=== PATIENT | female | born 1975 | race Caucasian/White ===

== ENCOUNTER → 2016-12-25 | Day surgery (SDC) | payer SELFPAY ==
[~2016-12-25] VITALS: Ht 170.2 cm; Wt 84.2 kg
[~2016-12-25] MED LIST: COLACE100 MG PO; NORCO 5-325 TA1 EACH PO; ZOFRAN4 MG PO
--- NOTE | ~2016-12-25 | OR ---
PATIENT'S NAME: ARLEN BARRETT [facility] AGE: 41 Y [address] ROOM: [place] [address] [place] [facility] [place]: 12/25/2016 OR/Procedure Report DISCHARGE DATE: FAMILY PHYSICIAN: Genoveva Leon PA-C ATTENDING PHYSICIAN: Jon Silver SURGEON: Jon Silver MD CLERICAL SUPERVISOR: Mihai Martinez PA-C DATE OF PROCEDURE: 12/25/2016 PREOPERATIVE DIAGNOSIS: Cholelithiasis with recent bout of gallstone pancreatitis. POSTOPERATIVE DIAGNOSIS: Cholelithiasis with recent bout of gallstone pancreatitis. PROCEDURE PERFORMED: Laparoscopic cholecystectomy with intraoperative cholangiogram. FINDINGS: There were no filling defects on cholangiogram. There were a large number of stones in the gallbladder. ESTIMATED BLOOD LOSS: 20 mL. COMPLICATIONS: None. INDICATIONS: The patient is a 41-year-old female, who had signs and symptoms of biliary colic and then presented with what appeared like gallstone pancreatitis. She was managed with this and now is in need of cholecystectomy. We discussed cholecystectomy with the patient, the risks, benefits, and alternatives, and she elected to proceed. PROCEDURE IN DETAIL: The patient was taken to the operating room. She was placed supine, given IV sedation, and subsequently intubated. Abdomen was prepped with ChloraPrep and sterilely draped. Local anesthetic was infiltrated just superior to the umbilicus. A transverse incision was created. The abdomen was elevated. Veress needle was inserted. Pneumoperitoneum was induced. Following this, a 5 mm trocar was inserted followed by insertion of the camera. There was no injury from initial trocar placement. Three more trocars were then positioned, an 11 mm epigastric and two 5 mm right subcostal ports. Skin overlying the peritoneum was first anesthetized prior to making these incisions. All 3 of these trocars were inserted under direct visualization. The gallbladder was grasped and it was elevated. It was very distended. On grasping this, clear bile spilled from the lumen consistent with hydropic gallbladder. The infundibulum was somewhat bilobed likely secondary to the stones. This was grasped, retracted PATIENT'S NAME: ARLEN BARRETT [facility] AGE: 41 Y [address] ROOM: [place], [place] [address] [place] [facility] [place]: 12/25/2016 OR/Procedure Report DISCHARGE DATE: FAMILY PHYSICIAN: Genoveva Leon PA-C ATTENDING PHYSICIAN: Jon Silver inferiorly and laterally to help expose the Calot triangle. The cystic duct and artery were dissected around circumferentially. We felt we had a critical window. The cystic duct was clipped near the gallbladder. It was partially transected. Cholangiogram catheter was then inserted. A cholangiogram was obtained using fluoroscopy. This revealed free flow of contrast into the duodenum as well as right and left hepatic ducts. It was mildly dilated, but no filling defects were present. Once this was completed, the cystic duct was doubly clipped and divided. The cystic artery was also doubly clipped and divided. The gallbladder was then removed from liver bed using electrocautery. This was placed in an EndoCatch bag and brought out through the epigastric port site. The liver bed was then inspected. It appeared hemostatic. Clips appeared to be in good position on both the cystic duct and artery. The area was irrigated. Fluid was removed. Pneumoperitoneum was released. The trocars were removed. The trocar sites appeared hemostatic. The fascia of the epigastric port site was approximated with 0 Vicryl suture followed by skin closure of all 4 port sites with 4-0 Monocryl suture. Steri- Strips and sterile dressings were placed. The patient was extubated and sent to Recovery in good condition. Mihai Martinez assisted for the case and was necessary for retraction and visualization. MD BRANDY TERESAO/modl /[id number] d: 12/25/162309 t: 01/08/17 1730, OPERATIVE SUMMARY
== END | disposition disaster alternative care site (69) ==
LOC: GPOC 12-24 17:00 → GSDC 09:41
PROC: 0FT44ZZ Resection of Gallbladder, Percutaneous Endoscopic Approach (ICD-10-PCS; principal; 2016-12-25)
PROC: BF12YZZ Fluoroscopy of Gallbladder using Other Contrast (ICD-10-PCS; 2016-12-25)
DX: K80.20 Calculus of gallbladder without cholecystitis without obstruction (principal); G43.909 Migraine, unspecified, not intractable, without status migrainosus; F32.9 Major depressive disorder, single episode, unspecified; F41.9 Anxiety disorder, unspecified; F41.0 Panic disorder [episodic paroxysmal anxiety]; F40.240 Claustrophobia; Z98.51 Tubal ligation status
CPT/HCPCS: J0694; J1100; J2001; J2250; J2405; J7120